=== PATIENT | female | born 1990 | race Caucasian/White ===

== ENCOUNTER 2021-10-03 08:29 | Outpatient (REF) | payer OTHER, SELFPAY ==
[2021-10-03 08:55] LABS: COVID-19 Test Negative (Negative)
== END 2021-10-03 08:30 | disposition home or self-care (01) ==
LOC: HO.LAB 08:29
PROVIDERS: Visit Provider Internal Medicine
DX: Z20.822 Contact with and (suspected) exposure to COVID-19 (principal)
CPT/HCPCS: 87635; C9803

== ENCOUNTER 2021-10-17 07:50 | Outpatient (REF) | payer OTHER, SELFPAY ==
[2021-10-17 08:12] LABS: Binax Internal Control QC Valid; Binax Now Covid-19 Ag Negative (Negative)
== END 2021-10-17 07:51 | disposition home or self-care (01) ==
LOC: HO.LAB 07:50
PROVIDERS: Visit Provider Internal Medicine
DX: Z13.89 Encounter for screening for other disorder (principal)